=== PATIENT | male | born 1965 | race Hispanic/Latino ===

== ENCOUNTER 2023-02-14 17:49 | Emergency (ER) | payer OTHER ==
[~2023-02-14] VITALS: Ht 363.2 cm; Wt 86.2 kg
[2023-02-14] MEDS ORDERED: KETOROLAC TROMETHAMINE 30 MG/ML VIAL IM STA (18:14)
[2023-02-14 18:15] VITALS: O2SAT 97
[2023-02-14] MEDS ORDERED: HYDROCODONE/APAP 5MG-325MG TAB PO ONE (18:15)
[2023-02-14] MEDS ORDERED: CYCLOBENZAPRINE5 MG PO (18:51)
[2023-02-14] MEDS ORDERED: KETOROLAC TROME10 MG PO (18:51)
== END 2023-02-14 19:00 | disposition home or self-care (01) ==
LOC: FSED 17:53
DX: M54.50 Low back pain, unspecified (principal); X50.0XXA Overexertion from strenuous movement or load, initial encounter; Y92.89 Other specified places as the place of occurrence of the external cause
CPT/HCPCS: 99282; J1885